=== PATIENT | female | born 1975 | race African-American/Black ===

== ENCOUNTER 2022-10-05 06:46 | Emergency (ER) | payer MEDICAID, MEDICARE ==
[~2022-10-05] VITALS: Ht 177.8 cm; Wt 109.6 kg
[2022-10-05] MEDS ORDERED: KETOROLAC 60MG/2ML VIAL IM ONE (08:30)
[2022-10-05 08:33] VITALS: BP 129/63
[2022-10-05 09:04] LABS: CHLORIDE 102 mEq/L (98-107)
[2022-10-05 09:06] LABS: BASOPHILS % 0.3 % (0.0-2.0); EOSINOPHILS % 0.3 % (0.0-5.0); HEMATOCRIT. 43.4 % (36.0-48.0); HEMOGLOBIN. 15.1 g/dL (12.0-16.0); LYMPHOCYTES % 14.8 % (20.0-50.0); MEAN CORPUSCULAR HEMOGLOBIN 33.7 pg (28.0-32.0); MEAN CORPUSCULAR VOLUME 96.9 fL (81.0-99.0); MEAN PLATELET VOLUME 8.6 fl (7.4-10.4); MONOCYTES % 6.9 % (2.0-8.0); NEUTROPHILS % 77.7 % (40.0-76.0); PLATELET 218 x1000/uL (130-400); RED BLOOD CELL COUNT 4.48 mill/uL (4.2-5.4); RED CELL DISTRIBUTION WIDTH 13.9 % (11.6-14.6)
[2022-10-05 10:17] LABS: HCG SCREEN NEGATIVE
[2022-10-05 10:18] LABS: CLARITY URINE CLEAR (CLEAR); COLOR URINE DARK YELLOW (YELLOW); KETONES URINE 1+ (NEGATIVE); LEUKOCYTE ESTERASE URINE NEGATIVE (NEGATIVE); NITRITE URINE NEGATIVE (NEGATIVE); OCCULT BLOOD URINE 1+ (NEGATIVE); PH URINE 5.5 (4.5-8.0); PROTEIN URINE 1+ (NEGATIVE); SPECIFIC GRAVITY URINE 1.028 (1.005-1.030)
[2022-10-05] MEDS ORDERED: IBUP-2028 MT (10:51)
== END 2022-10-05 11:48 | disposition home or self-care (01) ==
LOC: ER 06:46
DX: D21.9 Benign neoplasm of connective and other soft tissue, unspecified (principal)
CPT/HCPCS: 36415; 76830; 76856; 80053; 81003; 83690; 84703; 85025; 96372; 99284; J1885